=== PATIENT | male | born 1960 | race Caucasian/White ===

== ENCOUNTER 2020-09-10 12:34 | Emergency (ER) | payer MEDICARE, MEDICAID ==
[~2020-09-10] VITALS: Ht 175.3 cm; Wt 129.6 kg
[2020-09-10 14:11] LABS: BASOPHILS # (AUTO) 0.1 X10'3 (0-0.2); BASOPHILS % (AUTO) 0.7 % (0-1); EOSINOPHILS # (AUTO) 0.4 X10'3 (0-0.9); EOSINOPHILS % (AUTO) 3.9 % (0-6); HEMATOCRIT 47.9 % (42.0-52.0); HEMOGLOBIN 16.3 g/dl (14.0-17.9); LYMPHOCYTES # (AUTO) 2.3 X10'3 (1.1-4.8); LYMPHOCYTES % (AUTO) 20.4 % (21-51); MEAN CORPUSCULAR HGB CONC 34.1 g/dL (33.0-36.5); MEAN CORPUSCULAR VOLUME 88.1 FL (78-98); MEAN PLATELET VOLUME 9.4 FL (7.4-10.4); MONOCYTES # (AUTO) 0.9 X10'3 (0-0.9); MONOCYTES % (AUTO) 7.7 % (2-12); NEUTROPHILS # (AUTO) 7.7 X10'3 (1.8-7.7); NEUTROPHILS % (AUTO) 67.3 % (42-75); PLATELET COUNT 240 X10'3 (140-440); RED BLOOD COUNT 5.44 X10'6 (4.70-6.10); RED CELL DISTRIBUTION WIDTH 13.4 % (11.5-14.5); WHITE BLOOD COUNT 11.4 X10'3 (4.5-11.0)
[2020-09-10 14:21] LABS: PARTIAL THROMBOPLASTIN TIME 31 SECONDS (22-32)
[2020-09-10 14:24] LABS: ALANINE AMINOTRANSFERASE 58 U/L (12-78); ALBUMIN 3.9 G/DL (3.4-5.0); ALKALINE PHOSPHATASE 59 IU/L (46-116); ANION GAP 12 (8-16); ASPARTATE AMINO TRANSFERASE 35 U/L (10-37); BILIRUBIN,TOTAL 0.5 MG/DL (0.1-1.0); BLOOD UREA NITROGEN 17 MG/DL (7-18); CALCIUM 9.4 MG/DL (8.5-10.1); CHLORIDE 104 MMOL/L (99-107); GLUCOSE 71 MG/DL (70-104); POTASSIUM 4.2 MMOL/L (3.5-5.1); SODIUM 141 MMOL/L (135-145); TOTAL CARBON DIOXIDE 25.2 MMOL/L (24-32); TOTAL PROTEIN 7.9 G/DL (6.4-8.2); eGFR 76 ML/MIN
--- NOTE | 2020-09-10 14:59 | NUR ---
went on break .michelle mcneil breaking bld sugar was not checked ,when came back from break pt bld sugar was pending checked it 98.pa good at bedside .
[2020-09-10] MEDS ORDERED: iohexol 350MG/ML 100ml bottle IV ONE (16:52)
[2020-09-10] MEDS ORDERED: MESSAGE TO NURSING PO NR (18:13)
[2020-09-10] MEDS ORDERED: LISI2.5T2 PO (18:54)
[2020-09-10] MEDS ORDERED: MELO-102 PO (18:54)
[2020-09-10] MEDS ORDERED: GLIP10TA11 PO (18:54)
[2020-09-10] MEDS ORDERED: LIRA0.6P2 SUBCUT (18:54)
[2020-09-10] MEDS ORDERED: METF500T PO (18:54)
[2020-09-10] MEDS ORDERED: INSU100V9 SQ (18:54)
[2020-09-10] MEDS ORDERED: METF-516 PO (19:25)
[2020-09-10] MEDS ORDERED: DICL100G30 TOP (19:25)
[2020-09-10] MEDS ORDERED: LEVO50TA8 PO (19:25)
[2020-09-10] MEDS ORDERED: GABA300C PO (19:25)
[2020-09-10] MEDS ORDERED: LISI10TA4 PO (19:25)
[2020-09-10] MEDS ORDERED: SITA100T11 PO (19:25)
[2020-09-10 20:01] VITALS: BP 166/98
== END 2020-09-10 20:03 | disposition home or self-care (01) ==
LOC: ER 12:34
DX: I48.91 Unspecified atrial fibrillation (principal); E78.00 Pure hypercholesterolemia, unspecified; R42 Dizziness and giddiness; G47.30 Sleep apnea, unspecified; E11.9 Type 2 diabetes mellitus without complications; Z79.2 Long term (current) use of antibiotics; Z79.4 Long term (current) use of insulin; Z79.899 Other long term (current) drug therapy
CPT/HCPCS: 36415; 70450; 70496; 70498; 71045; 80053; 82948; 85025; 85610; 85730; 93005; 99285; Q9967

== ENCOUNTER 2021-05-29 21:13 | Observation (INO) | payer MEDICARE, MEDICAID ==
[~2021-05-29] VITALS: Ht 175.3 cm; Wt 131.8 kg
[~2021-05-29 21:13] MED LIST: DICL100G30 TOP; GABA300C PO; GLIP10TA11 PO; INSU100V9 SQ; LEVO50TA8 PO; LIRA0.6P2 SUBCUT; LISI10TA27 PO; MELO-102 PO; METF-516 PO; SITA100T11 PO
[2021-05-29 22:36] LABS: BASOPHILS # (AUTO) 0.1 X10'3 (0-0.2); BASOPHILS % (AUTO) 0.7 % (0-1); EOSINOPHILS # (AUTO) 0.3 X10'3 (0-0.9); EOSINOPHILS % (AUTO) 2.1 % (0-6); HEMATOCRIT 48.3 % (42.0-52.0); HEMOGLOBIN 16.2 g/dl (14.0-17.9); LYMPHOCYTES # (AUTO) 2.2 X10'3 (1.1-4.8); LYMPHOCYTES % (AUTO) 16.3 % (21-51); MEAN CORPUSCULAR HEMOGLOBIN 29.5 PG (27.0-31.0); MEAN CORPUSCULAR HGB CONC 33.6 g/dL (33.0-36.5); MEAN CORPUSCULAR VOLUME 87.8 FL (78-98); MEAN PLATELET VOLUME 9.1 FL (7.4-10.4); MONOCYTES % (AUTO) 7.2 % (2-12); NEUTROPHILS # (AUTO) 9.9 X10'3 (1.8-7.7); NEUTROPHILS % (AUTO) 73.7 % (42-75); PLATELET COUNT 228 X10'3 (140-440); RED CELL DISTRIBUTION WIDTH 13.8 % (11.5-14.5); WHITE BLOOD COUNT 13.4 X10'3 (4.5-11.0)
[2021-05-29 22:46] LABS: ALANINE AMINOTRANSFERASE 32 U/L (12-78); ALBUMIN 3.8 G/DL (3.4-5.0); ALBUMIN/GLOBULIN RATIO 0.9 (1.1-1.5); ALKALINE PHOSPHATASE 60 IU/L (46-116); ANION GAP 9 (8-16); ASPARTATE AMINO TRANSFERASE 22 U/L (10-37); BILIRUBIN,TOTAL 0.5 MG/DL (0.1-1.0); BLOOD UREA NITROGEN 18 MG/DL (7-18); BUN/CREATININE RATIO 15.7 (5.4-32.0); CALCIUM 9.1 MG/DL (8.5-10.1); CHLORIDE 106 MMOL/L (99-107); CREATININE 1.15 MG/DL (0.60-1.10); GLUCOSE 150 MG/DL (70-104); POTASSIUM 4.1 MMOL/L (3.5-5.1); SODIUM 140 MMOL/L (135-145); TOTAL CARBON DIOXIDE 24.6 MMOL/L (24-32); eGFR 65 ML/MIN
[2021-05-29 22:49] LABS: TROPONIN I < 0.04 NG/ML (0.0-0.05)
[2021-05-29] MEDS ORDERED: morphine 2 MG/ML inj. syringe IV PRN (22:50)
[2021-05-29] MEDS ORDERED: normal saline 1000ML IV soln IVB ONE (22:50)
[2021-05-29] MEDS ORDERED: normal saline 1000ml 1,000 ML IV ONE (22:50)
[2021-05-29] MEDS ORDERED: iohexol 350MG/ML 100ml bottle IV ONE (23:03)
[2021-05-29 23:11] LABS: ETHANOL < 0.010 GM/DL (0.0-0.010); MAGNESIUM 1.8 MG/DL (1.5-2.4)
[2021-05-30 00:32] LABS: CLARITY,URINE CLEAR (Clear); COLOR,URINE YELLOW (Yellow); GLUCOSE, URINE NEGATIVE (Neg); KETONES,URINE NEGATIVE (Neg); LEUKOCYTE ESTERASE ,URINE NEGATIVE (Neg); NITRITES, URINE NEGATIVE (Neg); OCCULT BLOOD,URINE NEGATIVE (Neg); PH,URINE 5.5 (4.8-8.0); PROTEIN,URINE NEGATIVE (Neg); UROBILINOGEN,URINE 0.2 E.U/dL (0.2-1.0)
[2021-05-30 00:33] LABS: UA COLLECTION TYPE CLN CATCH MIDSTREAM
[2021-05-30 00:38] LABS: URINE AMPHETAMINE SCREEN NEGATIVE (Neg); URINE BARBITUATE SCREEN NEGATIVE (Neg); URINE BENZODIAZEPINES SCREEN NEGATIVE (Neg); URINE CANNABINOID SCREEN POSITIVE (Neg); URINE COCAINE SCREEN NEGATIVE (Neg); URINE METHADONE SCREEN NEGATIVE (Neg); URINE OPIATE SCREEN POSITIVE (Neg); URINE PHENCYCLIDINE SCREEN NEGATIVE (Neg)
[2021-05-30] MEDS ORDERED: diphenhydrAMINE 50 mg/ml inj IV ONE (00:55)
[2021-05-30] MEDS ORDERED: SUMAtriptan succ. 6 MG/0.5ml vial SQ ONE (00:55)
[2021-05-30] MEDS ORDERED: proCHLORperazine 10 MG/2 ml inj IV ONE (00:55)
[2021-05-30] MEDS ORDERED: ketorolac tromethamine 15mg/ml inj. IV ONE (00:55)
[2021-05-30] MEDS ORDERED: aspirin 81mg tab.chew PO ONE (01:35)
[2021-05-30] MEDS ORDERED: enoxaparin 100mg/ml syringe SUBCUT ONE (01:35)
[2021-05-30] MEDS ORDERED: ASPI-1265 PO (01:37)
[2021-05-30] MEDS ORDERED: LISI20TA28 PO (01:37)
[2021-05-30] MEDS ORDERED: METF500T PO (01:47)
[2021-05-30] MEDS ORDERED: potassium Cl 40MEQ/1/2NS 520ml 520 ML IV PRN ×2 (01:50)
[2021-05-30] MEDS ORDERED: ondansetron/PF 4mg/2ml inj IV PRN (01:50)
[2021-05-30] MEDS ORDERED: glucagon, human recombinant 1mg kit SUBCUT PRN (01:50)
[2021-05-30] MEDS ORDERED: magnesium 4gm in 100ml NS 100 ML IV PRN (01:50)
[2021-05-30] MEDS ORDERED: dextrose 50%-water 50ml dispensing syringe IV PRN ×2 (01:50)
[2021-05-30] MEDS ORDERED: acetaminophen 325mg tablet PO PRN ×2 (01:50)
[2021-05-30] MEDS ORDERED: dextrose ORAL solution 15 GM/59 ML bottle PO PRN ×2 (01:50)
[2021-05-30] MEDS ORDERED: HYDROcodone/acetaminophen 5mg/325mg tablet PO PRN (01:50)
[2021-05-30] MEDS ORDERED: MESSAGE TO PHARMACY PO ONE (01:50)
[2021-05-30] MEDS ORDERED: magnesium Cl slow-release 64mg tablet PO PRN (01:50)
[2021-05-30] MEDS ORDERED: magnesium 2GM in 50ml NS 50 ML IV PRN (01:50)
[2021-05-30] MEDS ORDERED: potassium Cl 20 mEq SR tablet PO PRN ×2 (01:50)
[2021-05-30] MEDS ORDERED: morphine 2 MG/ML inj. syringe IV PRN (01:50)
[2021-05-30] MEDS ORDERED: METF-900 PO (02:27)
[2021-05-30] MEDS ORDERED: DICLOFENAC SODIUM TP PRN (02:35)
[2021-05-30] MEDS: normal saline 1000ml 1,000 ML IV SCH ×2 (02:37→11:50)
[2021-05-30] MEDS: diltiazem-NS 100mg/100ml 100 ML IV SCH ×2 (02:54→22:35)
--- NOTE | 2021-05-30 05:58 | NUR ---
I have received report VIA telephone from Cap RN in the ER and had the opportunity to ask questions currently awaiting patients arrival to floor.
[2021-05-30 06:43] VITALS: BP 212/120
--- NOTE | 2021-05-30 06:46 | NUR ---
Problems reprioritized. Patient report given, questions answered & plan of care reviewed with Leah ROJAS.
[2021-05-30 07:00] VITALS: BP 212/122
--- NOTE | 2021-05-30 07:10 | NUR ---
PAGER ID: [phone] MESSAGE: PATIENT SAMRA NICHOLSON IN ROOM 3026-A B/P IS 212/120 NEEDS SOMETHING PRN FOR B/P
[2021-05-30] MEDS ORDERED: cloNIDine 0.1 mg tablet PO ONE (07:20)
[2021-05-30] MEDS ORDERED: hydrALAZINE 20mg/ml inj. IV ONE (07:20)
[2021-05-30] MEDS ORDERED: aspirin 81mg tab.chew PO SCH (08:00)
[2021-05-30] MEDS: K and/or MAG REPLACEMENT MC SCH ×2 (08:00→20:33)
[2021-05-30] MEDS: lisinopril 20mg tablet PO SCH (08:36)
[2021-05-30] MEDS: levoTHYROXINE 25mcg tablet PO SCH (08:36)
[2021-05-30] MEDS: heparin, porcine 5000 units/ml vial SQ SCH ×2 (08:37→19:40)
[2021-05-30] MEDS: amox tr/potassium clavulanate 875/125mg TAB PO SCH ×2 (08:38→17:16)
[2021-05-30 11:42] VITALS: BP 149/84
[2021-05-30] MEDS: insulin Lispro (HumaLOG) vial - multi-dose SQ SCH ×2 (13:32→19:46)
[2021-05-30 16:04] VITALS: BP 143/68
[2021-05-30 18:00] VITALS: BP 177/88
[2021-05-30] MEDS: lactobacillus rhamnosus 10,000 MMU CELLS/CAPSULE PO SCH (19:39)
[2021-05-30] MEDS ORDERED: insulin glargine (Lantus) pen - multi-dose SQ SCH (21:00)
[2021-05-30] MEDS ORDERED: temazepam 15mg capsule PO PRN (21:00)
[2021-05-30] MEDS ORDERED: gabapentin 300mg capsule PO SCH (21:00)
[2021-05-30 22:00] VITALS: BP 140/69
[2021-05-31] MEDS ORDERED: vancomycin/NS 1 GM ADD-VANTAGE 250 ML IV SCH (01:30)
[2021-05-31 02:00] VITALS: BP 161/63
--- NOTE | 2021-05-31 06:27 | NUR ---
Problems reprioritized. Patient report given, questions answered & plan of care reviewed with Leah ROJAS.
[2021-05-31 06:50] LABS: BASOPHILS % (AUTO) 0.4 % (0-1); EOSINOPHILS # (AUTO) 0.2 X10'3 (0-0.9); EOSINOPHILS % (AUTO) 2.1 % (0-6); HEMATOCRIT 46.7 % (42.0-52.0); HEMOGLOBIN 15.4 g/dl (14.0-17.9); LYMPHOCYTES # (AUTO) 1.6 X10'3 (1.1-4.8); LYMPHOCYTES % (AUTO) 14.6 % (21-51); MEAN CORPUSCULAR HEMOGLOBIN 29.2 PG (27.0-31.0); MEAN CORPUSCULAR VOLUME 88.5 FL (78-98); MEAN PLATELET VOLUME 9.8 FL (7.4-10.4); MONOCYTES # (AUTO) 0.8 X10'3 (0-0.9); MONOCYTES % (AUTO) 7.4 % (2-12); NEUTROPHILS # (AUTO) 8.5 X10'3 (1.8-7.7); NEUTROPHILS % (AUTO) 75.5 % (42-75); PLATELET COUNT 204 X10'3 (140-440); RED BLOOD COUNT 5.28 X10'6 (4.70-6.10); RED CELL DISTRIBUTION WIDTH 14.2 % (11.5-14.5); WHITE BLOOD COUNT 11.3 X10'3 (4.5-11.0)
[2021-05-31 07:06] LABS: ALANINE AMINOTRANSFERASE 30 U/L (12-78); ALBUMIN 3.4 G/DL (3.4-5.0); ALBUMIN/GLOBULIN RATIO 0.9 (1.1-1.5); ALKALINE PHOSPHATASE 52 IU/L (46-116); ANION GAP 11 (8-16); ASPARTATE AMINO TRANSFERASE 19 U/L (10-37); BILIRUBIN,TOTAL 0.8 MG/DL (0.1-1.0); BLOOD UREA NITROGEN 16 MG/DL (7-18); BUN/CREATININE RATIO 16.7 (5.4-32.0); CALCIUM 8.6 MG/DL (8.5-10.1); CHLORIDE 105 MMOL/L (99-107); CHOL/HDL RATIO 7.6 (0.00-4.99); CHOLESTEROL 265 MG/DL (0-200); CREATININE 0.96 MG/DL (0.60-1.10); GLUCOSE 135 MG/DL (70-104); HDL CHOLESTEROL 35 MG/DL (35-60); LDL CHOLESTEROL 194 MG/DL (50-100); MAGNESIUM 1.9 MG/DL (1.5-2.4); POTASSIUM 4.1 MMOL/L (3.5-5.1); SODIUM 138 MMOL/L (135-145); TOTAL CARBON DIOXIDE 22.3 MMOL/L (24-32); TOTAL PROTEIN 7.3 G/DL (6.4-8.2); TRIGLYCERIDES 162 MG/DL (20-135); eGFR 80 ML/MIN
[2021-05-31] MEDS ORDERED: aspirin 81mg tab.chew PO SCH (07:13)
[2021-05-31] MEDS: lactobacillus rhamnosus 10,000 MMU CELLS/CAPSULE PO SCH (07:36)
[2021-05-31] MEDS: lisinopril 20mg tablet PO SCH (07:36)
[2021-05-31] MEDS: levoTHYROXINE 25mcg tablet PO SCH (07:36)
[2021-05-31] MEDS: heparin, porcine 5000 units/ml vial SQ SCH (07:37)
[2021-05-31] MEDS: amox tr/potassium clavulanate 875/125mg TAB PO SCH (07:38)
[2021-05-31 08:00] VITALS: BP 159/94
[2021-05-31] MEDS: K and/or MAG REPLACEMENT MC SCH (08:00)
[2021-05-31] MEDS: insulin Lispro (HumaLOG) vial - multi-dose SQ SCH (09:11)
[2021-05-31] MEDS ORDERED: AMOX-422 PO (10:24)
[2021-05-31] MEDS ORDERED: AMLO5TAB4 PO (10:24)
[2021-05-31] MEDS ORDERED: APIX5TAB3 PO (10:24)
[2021-05-31] MEDS ORDERED: hydrALAZINE 20mg/ml inj. IV ONE (10:50)
[2021-05-31] MEDS ORDERED: amLODIPine 5mg tablet PO ONE (10:50)
[2021-05-31 11:35] VITALS: BP 145/73
[2021-06-01] MEDS ORDERED: VANCOMYCIN LEVEL IV ONE (12:30)
== END 2021-05-31 11:55 | disposition home or self-care (01) ==
LOC: ER 21:13 → ED HOLD 05-30 01:48 → PCU 3S 05-30 06:30
PROVIDERS: ADMIT Internal Medicine; ATTEND Internal Medicine
DX: R51.9 Headache, unspecified (principal); I16.0 Hypertensive urgency; I48.20 Chronic atrial fibrillation, unspecified; D72.829 Elevated white blood cell count, unspecified; E78.00 Pure hypercholesterolemia, unspecified; I48.4 Atypical atrial flutter; E03.9 Hypothyroidism, unspecified; E11.9 Type 2 diabetes mellitus without complications; I10 Essential (primary) hypertension; M19.90 Unspecified osteoarthritis, unspecified site; G47.33 Obstructive sleep apnea (adult) (pediatric); F12.90 Cannabis use, unspecified, uncomplicated; Z72.89 Other problems related to lifestyle; Z79.01 Long term (current) use of anticoagulants
CPT/HCPCS: 36415; 70496; 80053; 80061; 80305; 80320; 81003; 82948; 83036; 83605; 83735; 84443; 84484; 85025; 87040; 87077; 87081; 87186; 93005; 93306; 94660; 94760; 96361; 96365; 96367; 96372; 96375; 97116; 97161; 97530; 99285; G0378; J0360; J0780; J1200; J1644; J1815; J1885; J2270; J3370; J7030; Q9967; J1650; J3030; J3490

== ENCOUNTER 2021-06-21 15:15 | Emergency (ER) | payer MEDICARE, MEDICAID ==
[~2021-06-21] VITALS: Ht 175.3 cm; Wt 132.0 kg
[~2021-06-21 15:15] MED LIST changes: +AMLO5TAB4 PO; +AMOX-422 PO; +APIX5TAB3 PO; -LISI10TA27 PO; +LISI20TA28 PO; -METF-516 PO; +METF-900 PO
[2021-06-21 15:41] VITALS: BP 172/89
== END 2021-06-22 00:53 | disposition left against medical advice (07) ==
LOC: ER 15:16
DX: L02.415 Cutaneous abscess of right lower limb (principal); Z53.21 Procedure and treatment not carried out due to patient leaving prior to being seen by health care provider

== ENCOUNTER 2021-10-08 10:49 | Emergency (ER) | payer MEDICARE, MEDICAID ==
[~2021-10-08] VITALS: Ht 175.3 cm; Wt 130.9 kg
[~2021-10-08 10:49] MED LIST changes: -AMOX-422 PO
[2021-10-08 11:11] VITALS: BP 172/87
[2021-10-08 11:49] LABS: BASOPHILS % (AUTO) 0.3 % (0-1); EOSINOPHILS % (AUTO) 0.3 % (0-6); HEMATOCRIT 49.6 % (42.0-52.0); HEMOGLOBIN 16.5 g/dl (14.0-17.9); LYMPHOCYTES # (AUTO) 1.3 X10'3 (1.1-4.8); LYMPHOCYTES % (AUTO) 8.7 % (21-51); MEAN CORPUSCULAR HEMOGLOBIN 28.9 PG (27.0-31.0); MEAN CORPUSCULAR HGB CONC 33.4 g/dL (33.0-36.5); MEAN CORPUSCULAR VOLUME 86.5 FL (78-98); MEAN PLATELET VOLUME 9.4 FL (7.4-10.4); MONOCYTES # (AUTO) 0.7 X10'3 (0-0.9); MONOCYTES % (AUTO) 4.7 % (2-12); NEUTROPHILS # (AUTO) 12.7 X10'3 (1.8-7.7); PLATELET COUNT 227 X10'3 (140-440); RED BLOOD COUNT 5.73 X10'6 (4.70-6.10); RED CELL DISTRIBUTION WIDTH 13.9 % (11.5-14.5); WHITE BLOOD COUNT 14.7 X10'3 (4.5-11.0)
[2021-10-08 12:13] LABS: ALANINE AMINOTRANSFERASE 49 U/L (12-78); ALBUMIN 3.6 G/DL (3.4-5.0); ALBUMIN/GLOBULIN RATIO 0.8 (1.1-1.5); ALKALINE PHOSPHATASE 73 IU/L (46-116); ANION GAP 11 (8-16); ASPARTATE AMINO TRANSFERASE 26 U/L (10-37); BILIRUBIN,TOTAL 0.5 MG/DL (0.1-1.0); BLOOD UREA NITROGEN 23 MG/DL (7-18); BUN/CREATININE RATIO 23.7 (5.4-32.0); CALCIUM 8.7 MG/DL (8.5-10.1); CHLORIDE 101 MMOL/L (99-107); CREATININE 0.97 MG/DL (0.60-1.10); GLUCOSE 185 MG/DL (70-104); LIPASE 752 U/L (73-393); POTASSIUM 3.8 MMOL/L (3.5-5.1); SODIUM 135 MMOL/L (135-145); TOTAL CARBON DIOXIDE 23.2 MMOL/L (24-32); eGFR 79 ML/MIN
[2021-10-08 12:13] LABS: CLARITY,URINE CLEAR (Clear); COLOR,URINE YELLOW (Yellow); GLUCOSE, URINE 250 mg/dl (Neg); KETONES,URINE 40 mg/dl (Neg); PROTEIN,URINE 100 mg/dl (Neg); UA COLLECTION TYPE CLN CATCH MIDSTREAM
[2021-10-08 12:14] LABS: LEUKOCYTE ESTERASE ,URINE NEGATIVE (Neg); NITRITES, URINE NEGATIVE (Neg); OCCULT BLOOD,URINE NEGATIVE (Neg); UROBILINOGEN,URINE 0.2 E.U/dL (0.2-1.0)
[2021-10-08 12:19] LABS: BACTERIA,URINE NONE SEEN /HPF (Neg); MUCUS STRANDS FEW /LPF (Neg); RBC,URINE 0-2 /HPF (0-2); SQUAMOUS EPITHELIAL CELL,UR NONE SEEN /LPF (FEW); WBC,URINE NONE SEEN /HPF (0-4)
[2021-10-08] MEDS ORDERED: iohexol 300mg/ml 100ml inj. ONE (16:01)
[2021-10-08] MEDS ORDERED: MESSAGE TO NURSING PO ONE (16:35)
[2021-10-08] MEDS ORDERED: ONDA4TAB6 PO (17:13)
== END 2021-10-08 17:28 | disposition home or self-care (01) ==
LOC: ER 10:49
DX: K85.90 Acute pancreatitis without necrosis or infection, unspecified (principal); R11.0 Nausea; E78.00 Pure hypercholesterolemia, unspecified; E11.9 Type 2 diabetes mellitus without complications; Z72.89 Other problems related to lifestyle; Z88.1 Allergy status to other antibiotic agents; Z79.4 Long term (current) use of insulin; Z79.899 Other long term (current) drug therapy
CPT/HCPCS: 36415; 74177; 80053; 81001; 83690; 85025; 99285; Q9967; 93005

== ENCOUNTER 2022-06-11 21:27 | Emergency (ER) | payer MEDICARE, MEDICAID ==
[~2022-06-11] VITALS: Ht 175.3 cm; Wt 122.7 kg
[~2022-06-11 21:27] MED LIST changes: +ONDA4TAB6 PO
[2022-06-11 22:10] LABS: BASOPHILS # (AUTO) 0.1 X10'3 (0-0.2); BASOPHILS % (AUTO) 0.6 % (0-1); EOSINOPHILS # (AUTO) 0.3 X10'3 (0-0.9); EOSINOPHILS % (AUTO) 2.5 % (0-6); HEMATOCRIT 46.3 % (42.0-52.0); HEMOGLOBIN 16.3 g/dl (14.0-17.9); LYMPHOCYTES # (AUTO) 3.4 X10'3 (1.1-4.8); LYMPHOCYTES % (AUTO) 27.1 % (21-51); MEAN CORPUSCULAR HEMOGLOBIN 30.6 PG (27.0-31.0); MEAN CORPUSCULAR HGB CONC 35.2 g/dL (33.0-36.5); MEAN PLATELET VOLUME 9.5 FL (7.4-10.4); MONOCYTES # (AUTO) 1.1 X10'3 (0-0.9); MONOCYTES % (AUTO) 9.1 % (2-12); NEUTROPHILS # (AUTO) 7.7 X10'3 (1.8-7.7); NEUTROPHILS % (AUTO) 60.7 % (42-75); PLATELET COUNT 232 X10'3 (140-440); RED BLOOD COUNT 5.32 X10'6 (4.70-6.10); RED CELL DISTRIBUTION WIDTH 13.2 % (11.5-14.5); WHITE BLOOD COUNT 12.6 X10'3 (4.5-11.0)
[2022-06-11 22:23] LABS: ALBUMIN 3.6 G/DL (3.4-5.0); ALKALINE PHOSPHATASE 65 IU/L (46-116); ANION GAP 11 (8-16); BILIRUBIN,TOTAL 0.6 MG/DL (0.1-1.0); BLOOD UREA NITROGEN 34 MG/DL (7-18); CALCIUM 8.3 MG/DL (8.5-10.1); CHLORIDE 100 MMOL/L (99-107); CREATININE 1.31 MG/DL (0.60-1.10); SODIUM 135 MMOL/L (135-145); TOTAL CARBON DIOXIDE 23.6 MMOL/L (24-32); eGFR 55 ML/MIN
[2022-06-11 22:59] LABS: ALANINE AMINOTRANSFERASE 58 U/L (12-78); TOTAL PROTEIN 7.3 G/DL (6.4-8.2)
[2022-06-11 23:00] LABS: ASPARTATE AMINO TRANSFERASE 41 U/L (10-37); GLUCOSE 212 MG/DL (70-104); POTASSIUM 4.5 MMOL/L (3.5-5.1)
[2022-06-11] MEDS ORDERED: normal saline 1000ml 1,000 ML IV ONE (23:15)
[2022-06-12 00:50] VITALS: BP 111/63
== END 2022-06-12 01:39 | disposition home or self-care (01) ==
LOC: ER 21:28
DX: I95.9 Hypotension, unspecified (principal); I51.0 Cardiac septal defect, acquired; E78.00 Pure hypercholesterolemia, unspecified; E11.9 Type 2 diabetes mellitus without complications; Z88.1 Allergy status to other antibiotic agents
CPT/HCPCS: 36415; 80053; 83880; 84484; 85025; 93005; 96360; 99285; J7030

== ENCOUNTER 2022-09-02 07:03 | Observation (INO) | payer MEDICARE, MEDICAID ==
[~2022-09-02] VITALS: Ht 175.3 cm; Wt 130.0 kg
[2022-09-02 08:43] LABS: BASOPHILS % (AUTO) 0.2 % (0-1); EOSINOPHILS # (AUTO) 0.6 X10'3 (0-0.9); EOSINOPHILS % (AUTO) 4.4 % (0-6); HEMATOCRIT 29.6 % (42.0-52.0); HEMOGLOBIN 10.1 g/dl (14.0-17.9); LYMPHOCYTES % (AUTO) 15.4 % (21-51); MEAN CORPUSCULAR HEMOGLOBIN 29.8 PG (27.0-31.0); MEAN CORPUSCULAR HGB CONC 34.2 g/dL (33.0-36.5); MEAN CORPUSCULAR VOLUME 87.2 FL (78-98); MEAN PLATELET VOLUME 9.5 FL (7.4-10.4); MONOCYTES # (AUTO) 0.8 X10'3 (0-0.9); MONOCYTES % (AUTO) 5.8 % (2-12); NEUTROPHILS # (AUTO) 9.6 X10'3 (1.8-7.7); NEUTROPHILS % (AUTO) 74.2 % (42-75); PLATELET COUNT 218 X10'3 (140-440); RED BLOOD COUNT 3.39 X10'6 (4.70-6.10); RED CELL DISTRIBUTION WIDTH 13.6 % (11.5-14.5)
[2022-09-02 08:49] LABS: ALANINE AMINOTRANSFERASE 34 U/L (12-78); ALBUMIN 3.5 G/DL (3.4-5.0); ALKALINE PHOSPHATASE 56 IU/L (46-116); ANION GAP 10 (8-16); ASPARTATE AMINO TRANSFERASE 19 U/L (10-37); BILIRUBIN,TOTAL 0.3 MG/DL (0.1-1.0); BLOOD UREA NITROGEN 27 MG/DL (7-18); CALCIUM 8.7 MG/DL (8.5-10.1); CHLORIDE 106 MMOL/L (99-107); CREATININE 1.23 MG/DL (0.60-1.10); GLUCOSE 194 MG/DL (70-104); POTASSIUM 4.2 MMOL/L (3.5-5.1); SODIUM 140 MMOL/L (135-145); TOTAL CARBON DIOXIDE 24.5 MMOL/L (24-32); TOTAL PROTEIN 6.9 G/DL (6.4-8.2); eGFR 60 ML/MIN
[2022-09-02] MEDS ORDERED: pantoprazole 40 MG vial IV ONE (09:20)
[2022-09-02] MEDS ORDERED: pantoprazole 40MG/NS 100ML BAG 100 ML IV ONE (09:25)
[2022-09-02] MEDS ORDERED: normal saline 1000ML IV soln IVB ONE (09:35)
[2022-09-02 10:52] LABS: BASOPHILS % (AUTO) 0.3 % (0-1); EOSINOPHILS # (AUTO) 0.7 X10'3 (0-0.9); EOSINOPHILS % (AUTO) 4.7 % (0-6); HEMATOCRIT 30.1 % (42.0-52.0); HEMOGLOBIN 10.3 g/dl (14.0-17.9); LYMPHOCYTES # (AUTO) 2.6 X10'3 (1.1-4.8); MEAN CORPUSCULAR HEMOGLOBIN 30.3 PG (27.0-31.0); MEAN CORPUSCULAR HGB CONC 34.2 g/dL (33.0-36.5); MEAN CORPUSCULAR VOLUME 88.7 FL (78-98); MEAN PLATELET VOLUME 9.7 FL (7.4-10.4); MONOCYTES # (AUTO) 0.9 X10'3 (0-0.9); MONOCYTES % (AUTO) 6.5 % (2-12); NEUTROPHILS # (AUTO) 10.1 X10'3 (1.8-7.7); NEUTROPHILS % (AUTO) 70.5 % (42-75); PLATELET COUNT 221 X10'3 (140-440); RED CELL DISTRIBUTION WIDTH 13.8 % (11.5-14.5); WHITE BLOOD COUNT 14.4 X10'3 (4.5-11.0)
[2022-09-02] MEDS ORDERED: ondansetron/PF 4mg/2ml inj IV PRN (13:45)
[2022-09-02] MEDS ORDERED: magnesium 4gm in 100ml NS 100 ML IV PRN (13:45)
[2022-09-02] MEDS ORDERED: magnesium Cl slow-release 64mg tablet PO PRN (13:45)
[2022-09-02] MEDS ORDERED: POTASSIUM BICARB 20meq eff tab 20 MEQ TABLET.EFF PO PRN ×2 (13:45)
[2022-09-02] MEDS ORDERED: magnesium 2GM in 50ml NS 50 ML IV PRN (13:45)
[2022-09-02] MEDS: normal saline 1000ml 1,000 ML IV SCH ×2 (13:45→21:15)
[2022-09-02] MEDS ORDERED: potassium CL 10mEq/100ml bag 100 ML IV PRN (13:45)
[2022-09-02 14:45] LABS: MAGNESIUM 1.9 MG/DL (1.5-2.4); POTASSIUM 4.2 MMOL/L (3.5-5.1)
[2022-09-02] MEDS ORDERED: APIX5TAB3 PO (16:53)
[2022-09-02] MEDS ORDERED: AMLO5TAB16 PO (16:53)
[2022-09-02] MEDS ORDERED: ESCI-8 PO (16:53)
[2022-09-02] MEDS ORDERED: CHLO25TA10 PO (16:53)
[2022-09-02] MEDS ORDERED: dextrose 50%-water 50ml dispensing syringe IV PRN ×2 (17:10)
[2022-09-02] MEDS ORDERED: MESSAGE TO PHARMACY PO ONE (17:10)
[2022-09-02] MEDS ORDERED: gabapentin 300mg capsule PO PRN (17:10)
[2022-09-02] MEDS ORDERED: DEXTROSE 15 GM of carb/4 tabs (each vial/BOTTLE has 4 tablets) PO PRN ×2 (17:10)
[2022-09-02] MEDS ORDERED: glucagon, human recombinant 1mg kit SUBCUT PRN (17:10)
[2022-09-02] MEDS ORDERED: PEG 3350/Na sulf,bicarb,Cl/KCl oral sol 4 liter bottle PO ONE (17:10)
[2022-09-02] MEDS ORDERED: insulin Lispro (HumaLOG) vial - multi-dose SQ SCH (17:10)
[2022-09-02 17:47] LABS: HEMOGLOBIN A1C 6.8 % (4.5-6.2)
[2022-09-02 18:00] VITALS: BP 127/54
--- NOTE | 2022-09-02 18:16 | NUR ---
Patient arrived on floor at 1755. Patient settled in bed call light given and educated on how to use. Patient brought in home CPAP.
--- NOTE | 2022-09-02 18:25 | NUR ---
Problems reprioritized. Patient report given, questions answered & plan of care reviewed with Vivien ROJAS.
--- NOTE | 2022-09-02 18:49 | NUR ---
Patient in room PCU 0988Y. I have received report from Kelsey ROJAS and had the opportunity to ask questions and assume patient care. Pt laying supine in bed. Pt on RA. No s/s of distress. Pt declines any c/o pain at this time. 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 Will continue to monitor.
[2022-09-02] MEDS: K and/or MAG REPLACEMENT MC SCH (20:00)
[2022-09-02] MEDS: insulin glargine (Lantus) pen - multi-dose SQ SCH (21:00)
[2022-09-02] MEDS: pantoprazole 40MG/NS 100ML BAG 100 ML IV SCH (21:15)
[2022-09-02 22:00] VITALS: BP 126/64
[2022-09-03] VITALS (10 sets, daily range): BP systolic 87–143; BP diastolic 38–76
--- NOTE | 2022-09-03 06:18 | NUR ---
Patient in room PCU 3026. I have received report from Vivien ROJAS Traveler and had the opportunity to ask questions and assume patient care.
--- NOTE | 2022-09-03 06:27 | NUR ---
Problems reprioritized. Patient report given, questions answered & plan of care reviewed with Tierra ROJAS.
[2022-09-03 06:46] LABS: BASOPHILS % (AUTO) 0.2 % (0-1); EOSINOPHILS # (AUTO) 0.3 X10'3 (0-0.9); EOSINOPHILS % (AUTO) 2.1 % (0-6); HEMATOCRIT 27.9 % (42.0-52.0); HEMOGLOBIN 9.9 g/dl (14.0-17.9); LYMPHOCYTES # (AUTO) 2.2 X10'3 (1.1-4.8); LYMPHOCYTES % (AUTO) 13.8 % (21-51); MEAN CORPUSCULAR HEMOGLOBIN 30.4 PG (27.0-31.0); MEAN CORPUSCULAR HGB CONC 35.5 g/dL (33.0-36.5); MEAN CORPUSCULAR VOLUME 85.5 FL (78-98); MEAN PLATELET VOLUME 9.2 FL (7.4-10.4); MONOCYTES # (AUTO) 1.1 X10'3 (0-0.9); MONOCYTES % (AUTO) 6.9 % (2-12); NEUTROPHILS # (AUTO) 12.1 X10'3 (1.8-7.7); PLATELET COUNT 206 X10'3 (140-440); RED BLOOD COUNT 3.26 X10'6 (4.70-6.10); RED CELL DISTRIBUTION WIDTH 13.5 % (11.5-14.5); WHITE BLOOD COUNT 15.8 X10'3 (4.5-11.0)
[2022-09-03 07:04] LABS: ALBUMIN 3.4 G/DL (3.4-5.0); ANION GAP 9 (8-16); BLOOD UREA NITROGEN 15 MG/DL (7-18); BUN/CREATININE RATIO 14.2 (5.4-32.0); CALCIUM 8.5 MG/DL (8.5-10.1); CHLORIDE 105 MMOL/L (99-107); CREATININE 1.06 MG/DL (0.60-1.10); GLUCOSE 129 MG/DL (70-104); MAGNESIUM 1.7 MG/DL (1.5-2.4); POTASSIUM 3.8 MMOL/L (3.5-5.1); SODIUM 140 MMOL/L (135-145); TOTAL CARBON DIOXIDE 26.5 MMOL/L (24-32); eGFR 71 ML/MIN
--- NOTE | 2022-09-03 07:47 | NUR ---
called GI lab regarding pt taking his eloquis yesterday morning and stating he is clean from stools but bleeding from rectum.
[2022-09-03] MEDS: lisinopril 20mg tablet PO SCH (08:00)
[2022-09-03] MEDS: amLODIPine 5mg tablet PO SCH (08:00)
[2022-09-03] MEDS: K and/or MAG REPLACEMENT MC SCH ×2 (08:00→20:00)
[2022-09-03] MEDS ORDERED: MIDAZolam 1 MG/ML 5ML VIAL ONE (08:10)
[2022-09-03] MEDS ORDERED: LIDOcaine Viscous 15ml cup ONE (08:10)
[2022-09-03] MEDS ORDERED: fentaNYL/PF 50MCG/1 ML 2ML syringe ONE (08:10)
[2022-09-03] MEDS: pantoprazole 40MG/NS 100ML BAG 100 ML IV SCH ×2 (08:23→20:00)
[2022-09-03] MEDS: levoTHYROXINE 25mcg tablet PO SCH (08:26)
[2022-09-03] MEDS: normal saline 1000ml 1,000 ML IV SCH ×2 (09:45→19:45)
--- NOTE | 2022-09-03 10:14 | NUR ---
Patient taken to GI lab
[2022-09-03] MEDS: ESCITALOPRAM OXALATE 5 MG TABLET PO SCH (13:43)
--- NOTE | 2022-09-03 14:49 | NUR ---
Pt at GI lab on procedure. Endo/colonoscopy [facility] Dr Brink. Addendum: 09/03/22 at 1450 by Tierra Perez RN Amended: Links added.
--- NOTE | 2022-09-03 18:33 | NUR ---
Problems reprioritized. Patient report given, questions answered & plan of care reviewed with CHOLO ROJAS.
--- NOTE | 2022-09-03 19:13 | NUR ---
Patient in room U 5151Y. I have received report from Tierra ROJAS and had the opportunity to ask questions and assume patient care. Pt is sitting up on side of bed, finishing eating dinner. Pt on RA. No s/s of distress. Pt denies any c/o pain at this time. 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 Will continue to monitor.
[2022-09-03] MEDS ORDERED: HYDROcodone/acetaminophen 5mg/325mg tablet PO PRN (20:35)
[2022-09-03] MEDS ORDERED: acetaminophen 325mg tablet PO PRN (20:35)
[2022-09-03] MEDS ORDERED: HYDROcodone/acetaminophen 10/325mg tab PO PRN (20:35)
[2022-09-03] MEDS: insulin glargine (Lantus) pen - multi-dose SQ SCH ×2 (21:00→23:14)
[2022-09-03] MEDS: morphine 2 MG/ML inj. syringe IV PRN (21:25)
--- NOTE | 2022-09-03 22:13 | NUR ---
Pt c/o SOB. Pt sweaty, diaphoretic, VS: 92% on home CPAP, 91 HR, 20 RR, 143/73, 97.0 AX temp. MD Galvez called. New orders received and imputed. Please see interventions. BLL, call light within reach, frequently used items in reach, frequent rounding, copy center specialist socks on. Will continue to monitor.
[2022-09-03] MEDS: ipratropium/albuterol 3ml nebule NEB PRN (22:26)
[2022-09-03 23:21] LABS: HEMATOCRIT 30.6 % (42.0-52.0); HEMOGLOBIN 10.1 g/dl (14.0-17.9); MEAN CORPUSCULAR HEMOGLOBIN 29.3 PG (27.0-31.0); MEAN CORPUSCULAR VOLUME 88.9 FL (78-98); MEAN PLATELET VOLUME 9.3 FL (7.4-10.4); PLATELET COUNT 251 X10'3 (140-440); RED BLOOD COUNT 3.44 X10'6 (4.70-6.10); WHITE BLOOD COUNT 19.3 X10'3 (4.5-11.0)
[2022-09-04] MEDS: morphine 2 MG/ML inj. syringe IV PRN (01:50)
[2022-09-04 02:00] VITALS: BP 129/69
[2022-09-04] MEDS: ipratropium/albuterol 3ml nebule NEB PRN (04:03)
[2022-09-04 06:00] VITALS: BP 121/80
[2022-09-04 06:18] LABS: BASOPHILS % (AUTO) 0.1 % (0-1); EOSINOPHILS % (AUTO) 0.1 % (0-6); HEMATOCRIT 31.3 % (42.0-52.0); HEMOGLOBIN 10.5 g/dl (14.0-17.9); LYMPHOCYTES # (AUTO) 0.9 X10'3 (1.1-4.8); LYMPHOCYTES % (AUTO) 4.5 % (21-51); MEAN CORPUSCULAR HEMOGLOBIN 29.8 PG (27.0-31.0); MEAN CORPUSCULAR HGB CONC 33.5 g/dL (33.0-36.5); MEAN CORPUSCULAR VOLUME 88.9 FL (78-98); MEAN PLATELET VOLUME 9.8 FL (7.4-10.4); MONOCYTES # (AUTO) 1.1 X10'3 (0-0.9); MONOCYTES % (AUTO) 5.8 % (2-12); NEUTROPHILS # (AUTO) 17.2 X10'3 (1.8-7.7); NEUTROPHILS % (AUTO) 89.5 % (42-75); PLATELET COUNT 240 X10'3 (140-440); RED BLOOD COUNT 3.52 X10'6 (4.70-6.10); RED CELL DISTRIBUTION WIDTH 13.9 % (11.5-14.5); WHITE BLOOD COUNT 19.3 X10'3 (4.5-11.0)
[2022-09-04 06:46] LABS: ALBUMIN 3.4 G/DL (3.4-5.0); ANION GAP 14 (8-16); BLOOD UREA NITROGEN 13 MG/DL (7-18); BUN/CREATININE RATIO 10.7 (5.4-32.0); CALCIUM 8.4 MG/DL (8.5-10.1); CHLORIDE 103 MMOL/L (99-107); CREATININE 1.22 MG/DL (0.60-1.10); GLUCOSE 243 MG/DL (70-104); MAGNESIUM 1.8 MG/DL (1.5-2.4); POTASSIUM 4.5 MMOL/L (3.5-5.1); SODIUM 140 MMOL/L (135-145); TOTAL CARBON DIOXIDE 22.9 MMOL/L (24-32); eGFR 60 ML/MIN
--- NOTE | 2022-09-04 07:03 | NUR ---
Problems reprioritized. Patient report given, questions answered & plan of care reviewed with Katie ROJAS.
[2022-09-04] MEDS: ESCITALOPRAM OXALATE 5 MG TABLET PO SCH (08:05)
[2022-09-04] MEDS: amLODIPine 5mg tablet PO SCH (08:06)
[2022-09-04] MEDS: lisinopril 20mg tablet PO SCH (08:06)
[2022-09-04] MEDS: levoTHYROXINE 25mcg tablet PO SCH (08:07)
[2022-09-04] MEDS ORDERED: PANT40SU2 PO (10:59)
[2022-09-04 11:00] VITALS: BP 94/60
[2022-09-04] MEDS: pantoprazole 40MG/NS 100ML BAG 100 ML IV SCH (11:04)
[2022-09-04] MEDS: normal saline 1000ml 1,000 ML IV SCH (11:06)
[2022-09-04] MEDS: K and/or MAG REPLACEMENT MC SCH (11:36)
[2022-09-04 12:33] LABS: CLARITY,URINE CLEAR (Clear); COLOR,URINE YELLOW (Yellow); GLUCOSE, URINE >=1000 mg/dl (Neg); KETONES,URINE 40 mg/dl (Neg); LEUKOCYTE ESTERASE ,URINE NEGATIVE (Neg); NITRITES, URINE NEGATIVE (Neg); OCCULT BLOOD,URINE NEGATIVE (Neg); PROTEIN,URINE NEGATIVE (Neg); UROBILINOGEN,URINE 0.2 E.U/dL (0.2-1.0)
[2022-09-04 12:34] LABS: UA COLLECTION TYPE NON-SPECIFIED
[2022-09-04 12:39] LABS: BACTERIA,URINE NONE SEEN /HPF (Neg); MUCUS STRANDS NONE SEEN /LPF (Neg); RBC,URINE NONE SEEN /HPF (0-2); SQUAMOUS EPITHELIAL CELL,UR FEW /LPF (FEW); WBC,URINE 0-4 /HPF (0-4)
--- NOTE | 2022-09-04 13:33 | NUR ---
PATIENT STABLE AND APPROPRIATE FOR DISCHARGE, IV REMOVED, TELE REMOVED, EDUCATION GIVEN, NEW MEDS E-SCRIPTED TO PREFERRED PHARMACY, ALL BELONGINGS SENT WITH PATIENT, PATIENT TAKEN TO LOBBY BY WHEELCHAIR TO AN AWAITING CAR WHERE WILL TAKE PATIENT HOME
--- NOTE | 2022-09-04 17:30 | NUR ---
Student documentation: I have reviewed and agree with all assessments performed and documented by KEY ZAMUDIO .
== END 2022-09-04 13:34 | disposition home or self-care (01) ==
LOC: ER 07:03 → ED HOLD 13:45 → PCU 3S 18:30
PROVIDERS: ADMIT Internal Medicine; ATTEND Internal Medicine
DX: K29.70 Gastritis, unspecified, without bleeding (principal); D62 Acute posthemorrhagic anemia; K64.4 Residual hemorrhoidal skin tags; K62.5 Hemorrhage of anus and rectum; K57.30 Diverticulosis of large intestine without perforation or abscess without bleeding; E11.9 Type 2 diabetes mellitus without complications; G62.9 Polyneuropathy, unspecified; I10 Essential (primary) hypertension; I48.91 Unspecified atrial fibrillation; E03.9 Hypothyroidism, unspecified; E78.00 Pure hypercholesterolemia, unspecified; D72.829 Elevated white blood cell count, unspecified; N17.0 Acute kidney failure with tubular necrosis; G89.29 Other chronic pain; F32.A Depression, unspecified; T45.515A Adverse effect of anticoagulants, initial encounter; Z79.01 Long term (current) use of anticoagulants; Z87.891 Personal history of nicotine dependence; Z79.4 Long term (current) use of insulin; Z79.899 Other long term (current) drug therapy
CPT/HCPCS: 36415; 43235; 45378; 71045; 80048; 80053; 81001; 82948; 83036; 83735; 83880; 84132; 84145; 84484; 85025; 85027; 93005; 94640; 94760; 96361; 96365; 96366; 96375; 96376; 99285; C9113; G0378; J1815; J2250; J2270; J3010; J7030; 99152; 99153; A4615; A4620